=== PATIENT | male | born 1980 | race Caucasian/White ===

== ENCOUNTER 2016-08-03 23:49 | Emergency (ER) | payer OTHER ==
[~2016-08-03] VITALS: Ht 177.8 cm; Wt 74.8 kg
[~2016-08-03 23:49] MED LIST: AMOXICILLIN500 M2 PO; CLEOCIN150 MG PO; CLINDAMYCIN HC300 MG PO; COUMADIN4 M2 PO; COUMADIN5 M2 PO; CYCLOBENZAPRINE10 MG PO; DARVOCET N 1001 TAB PO; DAYPRO600 M1 PO; ELIQUIS5 M1 PO; FLEXERIL10 MG PO; FLEXERIL5 MG PO; HYDROCODONE BIT1 T11 PO; KEFLEX500 MG PO; KLONOPIN0.5 MG PO; LAMICTAL100 MG PO; LEXAPRO20 MG PO; MOTRIN800 MG PO; NEURONTIN100 MG PO; NEURONTIN400 MG PO; NORFLEX100 MG PO; PREDNISONE20 M1 PO; Peridex 473 ML473 ML PO; REMERON15 M2 PO; REMERON30 M1 PO; TORADOL10 MG PO; TYLENOL WITH CO1 TA1 PO; ULTRAM50 MG PO; ZITHROMAX Z PA250 MG PO
[2016-08-04] MEDS ORDERED: ANAPROX DS550 MG PO (00:04)
[2016-08-04] MEDS ORDERED: ROBAXIN500 M1 PO (00:04)
[2016-08-19] MEDS ORDERED: NAPROSYN500 MG PO (11:31)
== END 2016-08-04 00:21 | disposition home or self-care (01) ==
LOC: ED 23:49
DX: M54.5 Low back pain (principal); F17.200 Nicotine dependence, unspecified, uncomplicated; Z88.6 Allergy status to analgesic agent; Z98.890 Other specified postprocedural states

== ENCOUNTER 2016-12-12 14:58 | Emergency (ER) | payer OTHER ==
[~2016-12-12] VITALS: Ht 177.8 cm; Wt 74.8 kg
[~2016-12-12 14:58] MED LIST changes: +ANAPROX DS550 MG PO; +NAPROSYN500 MG PO; +ROBAXIN500 M1 PO
[2016-12-12] MEDS ORDERED: PREDNISONE20 M1 PO (15:23)
== END 2016-12-12 15:25 | disposition home or self-care (01) ==
LOC: ED 14:58
DX: L24.9 Irritant contact dermatitis, unspecified cause (principal); F17.200 Nicotine dependence, unspecified, uncomplicated; Z88.6 Allergy status to analgesic agent; Z79.899 Other long term (current) drug therapy

== ENCOUNTER 2017-01-08 01:40 | Emergency (ER) | payer OTHER ==
[~2017-01-08] VITALS: Ht 177.8 cm; Wt 74.8 kg
[2017-01-08] MEDS ORDERED: ADVIL200 M1 PO (01:49)
[2017-01-08] MEDS ORDERED: NORCO 5-325 TA1 EACH PO (02:43)
== END 2017-01-08 03:15 | disposition home or self-care (01) ==
LOC: ED 01:40
DX: S20.219A Contusion of unspecified front wall of thorax, initial encounter (principal); G43.909 Migraine, unspecified, not intractable, without status migrainosus; F17.200 Nicotine dependence, unspecified, uncomplicated; Z88.6 Allergy status to analgesic agent; Z79.899 Other long term (current) drug therapy; Y04.2XXA Assault by strike against or bumped into by another person, initial encounter; Y93.39 Activity, other involving climbing, rappelling and jumping off; Y92.89 Other specified places as the place of occurrence of the external cause; Y99.8 Other external cause status

== ENCOUNTER 2017-01-13 15:41 | Emergency (ER) | payer OTHER ==
[~2017-01-13] VITALS: Ht 182.8 cm; Wt 63.5 kg
[~2017-01-13 15:41] MED LIST changes: +ADVIL200 M1 PO; +NORCO 5-325 TA1 EACH PO
[2017-01-13] MEDS ORDERED: MEDROL DOSEPAK4 MG PO (18:02)
[2017-01-13] MEDS ORDERED: CYCLOBENZAPRINE5 M3 PO (18:02)
[2017-01-13] MEDS ORDERED: HYDROCODONE BIT1 T11 PO (18:02)
== END 2017-01-13 18:34 | disposition home or self-care (01) ==
LOC: ED 15:41
DX: S20.212A Contusion of left front wall of thorax, initial encounter (principal); Z88.6 Allergy status to analgesic agent; Z79.899 Other long term (current) drug therapy; Y04.2XXA Assault by strike against or bumped into by another person, initial encounter; Y93.89 Activity, other specified; Y92.9 Unspecified place or not applicable; Y99.9 Unspecified external cause status

== ENCOUNTER 2017-05-08 22:37 | Emergency (ER) | payer OTHER ==
[~2017-05-08] VITALS: Ht 175.2 cm; Wt 72.6 kg
[~2017-05-08 22:37] MED LIST changes: +CYCLOBENZAPRINE5 M3 PO; +MEDROL DOSEPAK4 MG PO
[2017-05-08] MEDS ORDERED: CLINDAMYCIN HC300 MG PO (23:08)
[2017-05-08] MEDS ORDERED: Motrin,Rufen800 MG PO (23:22)
== END 2017-05-08 23:29 | disposition home or self-care (01) ==
LOC: ED 22:37
DX: K02.9 Dental caries, unspecified (principal); K04.01 Reversible pulpitis; K08.89 Other specified disorders of teeth and supporting structures; F17.200 Nicotine dependence, unspecified, uncomplicated; Z88.5 Allergy status to narcotic agent; Z79.899 Other long term (current) drug therapy

== ENCOUNTER 2017-05-09 04:51 | Emergency (ER) | payer OTHER ==
[~2017-05-09] VITALS: Ht 175.2 cm; Wt 72.6 kg
[~2017-05-09 04:51] MED LIST changes: +Motrin,Rufen800 MG PO
== END 2017-05-09 05:38 | disposition home or self-care (01) ==
LOC: ED 04:51
DX: K02.9 Dental caries, unspecified (principal); K04.01 Reversible pulpitis; F17.200 Nicotine dependence, unspecified, uncomplicated; Z88.5 Allergy status to narcotic agent; Z79.899 Other long term (current) drug therapy

== ENCOUNTER 2017-07-05 20:48 | Emergency (ER) | payer OTHER ==
[~2017-07-05] VITALS: Ht 177.8 cm; Wt 74.8 kg
[2017-07-05] MEDS ORDERED: CLINDAMYCIN150 MG PO (21:17)
[2017-07-05] MEDS ORDERED: NAPROSYN500 MG PO (21:17)
== END 2017-07-05 21:19 | disposition home or self-care (01) ==
LOC: ED 20:48
DX: K04.7 Periapical abscess without sinus (principal); K02.9 Dental caries, unspecified; G43.909 Migraine, unspecified, not intractable, without status migrainosus; Z88.5 Allergy status to narcotic agent; Z79.899 Other long term (current) drug therapy

== ENCOUNTER 2018-03-14 23:19 | Emergency (ER) | payer OTHER ==
[~2018-03-14] VITALS: Ht 175.2 cm; Wt 74.8 kg
[~2018-03-14 23:19] MED LIST changes: +CLINDAMYCIN150 MG PO
[2018-03-14] MEDS ORDERED: PREDNISONE10 MG PO (23:50)
== END 2018-03-15 00:17 | disposition home or self-care (01) ==
LOC: ED 23:19
DX: L23.7 Allergic contact dermatitis due to plants, except food (principal); Z88.6 Allergy status to analgesic agent; Z79.899 Other long term (current) drug therapy

== ENCOUNTER 2021-01-19 01:17 | Emergency (ER) | payer SELFPAY ==
[~2021-01-19] VITALS: Ht 177.8 cm; Wt 70.3 kg
[~2021-01-19 01:17] MED LIST changes: +PREDNISONE10 MG PO
[2021-01-19 03:01] LABS: BASO % 0.3 % (0.0-1.0); EOS # 0.3 10*3/uL (0.0-0.4); EOS % 2.1 % (1.0-4.0); HEMATOCRIT 42.6 % (42.0-52.0); LYMPH # 2.9 10*3/uL (1.3-4.4); MEAN CELL VOLUME 90.8 fl (80.0-94.0); MEAN CORPUSCULAR HGB 29.9 pg (27.0-31.0); MEAN CORPUSCULAR HGB CONC 32.9 g/dl (33.0-37.0); MEAN PLATELET VOLUME 8.9 fl (9.6-12.3); MONO # 1.1 10*3/uL (0.1-1.0); NEUT # 9.2 10*3/uL (2.3-7.9); NEUT % 68.3 % (47.0-73.0); PLATELET COUNT AUTOMATED 290 10*3/uL (130-400); RED BLOOD COUNT 4.69 10*6/uL (4.50-5.90); RED CELL DISTRI WIDTH 13.5 % (0-14.5); WHITE BLOOD COUNT 13.6 10*3/uL (4.8-10.8)
[2021-01-19 03:18] LABS: ALBUMIN 3.6 gm/dl (3.1-4.5); ALKALINE PHOSPHATASE 104 U/L (45-117); BUN 13 mg/dl (7-24); CHLORIDE 109 mmol/L (98-107); CREATININE 0.77 mg/dL (0.70-1.30); POTASSIUM 4.1 mmol/L (3.5-5.1); SGOT/AST 13 IU/L (3-35); SGPT/ALT 22 U/L (12-78); SODIUM 139 mmol/L (136-145); TOTAL PROTEIN 6.6 gm/dL (6.4-8.2)
[2021-01-19 03:19] LABS: TROPONIN I < 0.015 ng/ml (<0.045)
== END 2021-01-19 07:16 | disposition home or self-care (01) ==
LOC: ED 01:17
PROVIDERS: Emergency Medicine
DX: F41.9 Anxiety disorder, unspecified (principal); R07.81 Pleurodynia; G43.909 Migraine, unspecified, not intractable, without status migrainosus; R20.2 Paresthesia of skin; R20.0 Anesthesia of skin; Z86.711 Personal history of pulmonary embolism; Z88.8 Allergy status to other drugs, medicaments and biological substances; Z79.2 Long term (current) use of antibiotics; Z79.899 Other long term (current) drug therapy

== ENCOUNTER 2024-04-12 16:11 | Emergency (ER) | payer SELFPAY ==
[2024-04-12] MEDS ORDERED: Lidocaine Hydrochloride 2% 10 ML AMP SC ONE (16:35)
[2024-04-12] MEDS ORDERED: Tdap Vaccine 0.5 ML SYR (Adult Vaccine) IM ONE (16:35)
[2024-04-12] MEDS ORDERED: AMOX-CLAV 875-1 EACH PO (17:24)
[2024-04-12] MEDS ORDERED: Acetaminophen/Oxycodone 5 MG/325 MG TABLET PO ONE (17:25)
[2024-04-12] MEDS ORDERED: Bacitracin Zinc/Neomycin/Pol 15 GM TUBE T ONE (17:25)
[2024-04-12] MEDS ORDERED: Amoxicillin/Clavulanate Pota 875 MG TAB PO ONE (17:25)
[2024-04-12] MEDS ORDERED: IBU800 M1 PO (17:25)
== END 2024-04-12 17:46 | disposition home or self-care (01) ==
LOC: ED 16:11
DX: S51.012A Laceration without foreign body of left elbow, initial encounter (principal); F32.A Depression, unspecified; F41.9 Anxiety disorder, unspecified; G43.909 Migraine, unspecified, not intractable, without status migrainosus; Z98.890 Other specified postprocedural states; W22.8XXA Striking against or struck by other objects, initial encounter; Y93.89 Activity, other specified; Y92.89 Other specified places as the place of occurrence of the external cause; Y99.8 Other external cause status

== ENCOUNTER 2024-04-16 05:17 | Emergency (ER) | payer SELFPAY ==
[~2024-04-16] VITALS: Ht 177.8 cm; Wt 70.3 kg
[~2024-04-16 05:17] MED LIST changes: +AMOX-CLAV 875-1 EACH PO; +IBU800 M1 PO
== END 2024-04-16 07:40 | disposition home or self-care (01) ==
LOC: ED 05:17
DX: S40.022A Contusion of left upper arm, initial encounter (principal); F41.9 Anxiety disorder, unspecified; F32.A Depression, unspecified; G43.909 Migraine, unspecified, not intractable, without status migrainosus; Z86.718 Personal history of other venous thrombosis and embolism; Z98.890 Other specified postprocedural states; W01.198A Fall on same level from slipping, tripping and stumbling with subsequent striking against other object, initial encounter; Y93.89 Activity, other specified; Y92.89 Other specified places as the place of occurrence of the external cause; Y99.8 Other external cause status

== ENCOUNTER 2024-08-15 22:21 | Emergency (ER) | payer SELFPAY | END 2024-08-15 22:44 | disposition left against medical advice (07) | LOC: ED 22:21 | DX: S61.211A Laceration without foreign body of left index finger without damage to nail, initial encounter (principal); Z53.21 Procedure and treatment not carried out due to patient leaving prior to being seen by health care provider; X58.XXXA Exposure to other specified factors, initial encounter; Y93.89 Activity, other specified; Y92.89 Other specified places as the place of occurrence of the external cause; Y99.8 Other external cause status ==